=== PATIENT | male | born 1965 | race Caucasian/White ===

== ENCOUNTER → 2016-12-01 | Outpatient (CLI) | payer OTHER ==
[~2016-12-01] VITALS: Ht 188 cm; Wt 105.2 kg
[~2016-12-01] MED LIST: ASPIR 8181 M1 PO; BISOPROLOL-HCT1 EAC1 PO; CRESTOR10 MG PO; GLUCOPHAGE500 MG PO; PREVACID30 MG PO
[2016-12-01 10:03] LABS: POINT-OF-CARE METER ID UU13113694
== END | disposition home or self-care (01) ==
LOC: OPR 08:41 → EDSTATUS 09:00 → OPR 09:00
PROVIDERS: Internal Medicine Gastroenterology
DX: K76.0 Fatty (change of) liver, not elsewhere classified (principal); E83.119 Hemochromatosis, unspecified; E11.9 Type 2 diabetes mellitus without complications; I10 Essential (primary) hypertension; E78.5 Hyperlipidemia, unspecified
CPT/HCPCS: 77012; 82948; 88305; 88307; 88313; J3010